=== PATIENT | male | born 1940 | race American Indian/Alaskan Native ===

== ENCOUNTER 2018-05-26 06:42 | Day surgery (SDC) | payer MEDICARE ==
[2018-05-25 14:01] VITALS: BMI 30.8
[2018-05-26 07:17] VITALS: PULSE 75; RESP 19; TEMP 97.1; O2SAT 100
[2018-05-26] MEDS ORDERED: Propofol 10 mg/ml Inj (20 ML) ONE (08:22)
[2018-05-26] MEDS ORDERED: Lidocaine Hydrochloride 5 ML INJ ONE (08:23)
--- NOTE | 2018-05-26 08:39 | CP.SDSHP ---
Same Day Surgery H & P - History Proposed Procedure: colonoscopy Pre-Op Diagnosis: polyp surveillance - Previous Medical/Surgical History Cardiac: Hypertension, Arrhythmia, Other (pacemaker, hyperlipidemia) - Allergies Allergies: Allergies aspirin Allergy (Intermediate, Verified 05/26/18 07:02) SWELLING SWELLING OF EYES. - Current Medications Current Medications: reviewed, per reconciliation - Physical Exam General Appearance: wdwn nad Vital Signs: Vital Signs 05/26/18 05/26/18 05/26/18 07:10 07:29 08:33 Temperature 97.1 F L 97.1 F L Pulse Rate 75 75 75 Respiratory 19 19 Rate Blood Pressure 150/79 150/79 O2 Sat by Pulse 100 100 Oximetry Mental Status: Alert & Oriented x3 Heart: WNL Lungs: WNL GI: WNL - {Optional Preform as Required} Abdomen: WNL - Impression Impression: history of colon polyps Pt. Evaluated Today:Candidate for Anesthesia & Procedure: Yes - Date & Time Date: 05/26/18 Time: 08:39 Short Stay Discharge - Short Stay Discharge Admitting Diagnosis/Reason for Visit: COLONIC POLYPS Disposition: HOME/ ROUTINE
[2018-05-26] MEDS ORDERED: Lactated Ringer's 500 ML IV SCH (08:45)
[2018-05-26 09:41] VITALS: BP 126/79
== END 2018-05-26 09:57 | disposition home or self-care (01) ==
LOC: C.ENDO 06:42
PROVIDERS: ATTEND Internal Medicine Gastroenterology
DX: Z86.010 Personal history of colon polyps (principal); D12.4 Benign neoplasm of descending colon; Z95.0 Presence of cardiac pacemaker; I10 Essential (primary) hypertension; E78.5 Hyperlipidemia, unspecified
CPT/HCPCS: 45380; 88305; J2704; J7120